=== PATIENT | female | born 1935 | race Caucasian/White ===

== ENCOUNTER → 2017-01-26 | Outpatient (CLI) | payer MEDICARE ==
[~2017-01-26] MED LIST: AMLODIPINE BESYL5 MG PO; AVAPRO PO; AVAPRO300 M1 PO; BETIMOL5 ML OP; CALCIUM 250+D T1 TAB PO; CALCIUM MAG; CALCIUM MAGNESI1 TAB; CELEBREX PO; CELECOXIB200 MG PO; CLONAZEPAM0.5 MG; CLONAZEPAM0.5 MG PO; DIOVAN HCT PO; ESTRACE PO; ESTRACE0.5 MG PO; ESTRACE1 M1 PO; ESTRACE1 MG; ESTRADIOL0.5 MG; FLAX SEED OIL1000 MG PO; FLAXSEED OIL1000 M1 PO; FLONASE 0.05% N16 G1; GLUCOSAMINE/CHONDROI PO; KLONOPIN0.5 MG PO; LEVAQUIN750 M1 PO; LEVAQUIN750 MG PO; LORTAB 5/500 TA1 TA1 PO; LORTAB 7.5-5001 TAB PO; LYRICA PO; LYRICA200 MG PO; LYRICA75 MG PO; MURO-1283.5 G1; OMEPRAZOLE20 M2 PO; PREVACID PO; PRILOSEC PO; PRILOSEC20 M1 PO; REQUIP1 MG PO; TIMOPTIC2.5 ML; TIMOPTIC5 ML OU; TRAMADOL HCL50 M2; TRAMADOL HCL50 M2 PO; ULTRAM PO; VITAL-D RX TABL1 TAB PO; VITAMIN D1000 UNIT; VITAMIN D32000 UNIT PO
--- NOTE | ~2017-01-26 | CT57 ---
[facility] A Service of [facility] RADIOLOGY TEXT RESULTS PATIENT: LOKI MOSQUERA LOCATION: [facility] : 34 UNIT #: [id number] AGE: [address]: Chad Ojeda MD SEX: F ORDER DR: [id number] [facility] [address] [place], [place] [address] [id number] O MR#: [id number] Acc #: [id number] NAME: LOKI MOSQUERA. : 1935 SEX: F STUDY DATE/TIME: 01/26/2017 13:38 UNIT: [facility] ROOM: STUDY DESCRIPTION: CT Chest Wo Cont Attending Physician: Chad Ojeda M.D. Ordering Physician: Chad Ojeda M.D. Primary Care Physician: Anthony Gallardo M.D. MEDICAL IMAGING REPORT This report is preliminary unless electronic signature is present EXAM High-resolution chest CT without contrast. HISTORY 80-year-old female with pulmonary fibrosis, low oxygen since September 2016. TECHNIQUE CT of the chest performed without contrast. Selected HRCT imaging was obtained in the supine and prone positioning. This CT exam was performed with one or more of the following radiation dose reduction techniques: automatic exposure control, adjustment of mA and/or kV according to patient size, and iterative reconstruction. COMPARISON STUDIES Comparison with 10/13/2016. FINDINGS There is some stable mild tree-in-bud nodularity in the inferior right upper lobe. There is some stable minimal tree-in-bud nodularity in the lingula. There is new tree-in-bud nodularity in the inferior aspect of the left lower lobe. Selected HRCT imaging demonstrates some mild cylindrical bronchiectasis in the lung bases. There is no evidence for honeycombing or diffuse infiltrative lung disease. There are scattered areas of scarring in the lung bases. There is no pleural effusion or suspicious lymphadenopathy. Limited imaging in the upper abdomen demonstrates a cholecystectomy and incompletely visualized cyst within the right kidney. The bone windows are unremarkable. IMPRESSION 1. There is some mild fibrotic change in the lung bases. 2. Mild cylindrical bronchiectasis in the lung bases. [facility] A Service of [facility] & [facility] RADIOLOGY TEXT RESULTS PATIENT: LOKI MOSQUERA LOCATION: [facility] : 34 UNIT #: [id number] AGE: [address]: Chad Ojeda MD SEX: F ORDER DR: 3. No honeycombing or diffuse infiltrative lung disease. 4. Stable scattered areas of tree-in-bud nodularity which are nonspecific but likely represent infectious or inflammatory small airways disease. Dictated by... Pablo Ng M.D. THIS IS AN ELECTRONICALLY VERIFIED REPORT Pablo Ng M.D. at 01/29/2017 4:40 PM SHAAN/magdy TD: 01/29/2017 13:45 JOB #: [id number] MEDICAL IMAGING REPORT Page 1 of 1 COPY
== END | disposition home or self-care (01) ==
LOC: CCAT 13:19
DX: J84.10 Pulmonary fibrosis, unspecified (principal); J47.9 Bronchiectasis, uncomplicated; R91.8 Other nonspecific abnormal finding of lung field
CPT/HCPCS: 71250